=== PATIENT | male | born 2005 | race Caucasian/White ===

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

== ENCOUNTER 2023-09-12 11:14 | Emergency (ER) | payer OTHER, MEDICAID, SELFPAY ==
[2023-09-12] VITALS (12 sets, daily range): BP systolic 110–170; BP diastolic 53–81; PULSE 82–110; RESP 8–21; TEMP 36.7; O2SAT 99–100; BMI 17.4
--- NOTE | 2023-09-12 11:24 | DI.RAD.S_ITS ---
PROCEDURE: XR KNEE LT 3V INDICATIONS: CUSTODIAL, KNEE PAIN/INJURY TECHNIQUE: 3 views of the knee were acquired. COMPARISON: None. FINDINGS: Bones: There is a comminuted fracture within the medial tibial plateau, with minimal displacement. Fracture lucency does extend into the joint space. There is minimal height loss compared to the lateral aspect. Fracture lucency does extend into the tibial spine. Soft tissues: Mild joint effusion. No suspicious soft tissue calcifications. IMPRESSION: Comminuted medial plateau fracture with minimal displacement, extending into the tibial spine. Dictated by: Madalyn Taveras M.D. on 09/12/2023 at 13:15 Approved by: Madalyn Taveras M.D. on 09/12/2023 at 13:16
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
[2023-09-12] MEDS: MORPHINE 4 MG/ML INJ IV (11:52)
[2023-09-12] MEDS: KETOROLAC 30 MG/ML VIAL 15 MG IV (11:52)
--- NOTE | 2023-09-12 12:09 | DI.CT.S_ITS ---
PROCEDURE: CT LE LT W CON INDICATIONS: FRACTURE ASSESSMENT PREOP TECHNIQUE: Noncontrast 1-1.5 mm axial sections acquired from the mid-patella to the proximal tibia, with coronal and sagittal reformats. COMPARISON: [facility], CR, XR KNEE LT 3V, 09/12/2023, 11:27. FINDINGS: Image quality: Excellent. Bones: There is a comminuted medial tibial plateau fracture with appearance approximately 3 mm height loss. Fracture lucency does extend into the tibial spine. In addition, fracture lucencies are identified within the anterior, mid and posterior aspect of the medial condyle. Remaining osseous structures appear intact. Soft tissues: Moderate effusion is present. IMPRESSION: Comminuted medial condylar fracture with mild depression as well as extension into the tibial spine. Dictated by: Madalyn Taveras M.D. on 09/12/2023 at 13:17 Approved by: Madalyn Taveras M.D. on 09/12/2023 at 13:19
[2023-09-12 12:53] LABS: Add Manual Diff / Slide Review NO; Basophils Absolute Auto 100 /uL (0-100); Basophils Percent Auto 0.5 % (0-2); Eosinophils Absolute Auto 100 /uL (0-450); Eosinophils Percent Auto 0.7 % (2-4); Hematocrit 37.9 % (41-53); Hemoglobin 13.2 g/dL (13.5-17.5); Lymphocytes Absolute Auto 1600 /uL (1100-4500); Mean Corpuscular HGB Conc 34.9 % (30-36); Mean Corpuscular Hemoglobin 29.5 PG (26-34); Mean Corpuscular Volume 84.6 fL (80-100); Monocytes Absolute Auto 600 /uL (0-900); Monocytes Percent Auto 6.6 % (3-14); Neutrophils Absolute Auto 7500 /uL (1500-7000); Neutrophils Percent Auto 76.2 % (50-75); Platelet Count 210 X10^3/uL (150-400); Red Blood Cell Count 4.48 X10^6/uL (4.5-5.9); Red Cell Distribution Width 13.2 % (11.6-14.8); White Blood Cell Count 9.8 X10^3/uL (4.5-11.0)
[2023-09-12 13:03] LABS: INR 1.3 (0.9-1.3); Prothrombin Time 14.6 SECONDS (10.1-12.7)
[2023-09-12 13:13] LABS: Alanine Aminotransferase 16 IU/L (<50); Albumin Globulin Ratio 1.4 (1.0-2.8); Alkaline Phosphatase 62 U/L (38-126); Aspartate Aminotransferase 25 IU/L (17-59); BUN Creatinine Ratio 24.2 (6-22); Bilirubin Total 0.6 mg/dL (0.2-1.3); Blood Urea Nitrogen 16 mg/dL (9-20); Calcium 8.7 mg/dL (8.4-10.2); Carbon Dioxide 23 mmol/L (22-32); Chloride 107 mmol/L (98-107); Estimated Glomerular Filt Rate > 60 mL/min (>60); Globulin 2.8 g/dL (1.7-4.1); Glucose 92 mg/dL (70-100); HEMOLYSIS < 15 (0-50); Sodium 135 mmol/L (137-145); Total Protein 6.8 g/dL (6.3-8.2)
--- NOTE | 2023-09-12 14:13 | PC.NURSE ---
Upon getting pt to wheel chair for D/C pt passed out for approximately 3 mintues. Pt was assited back to bed with the help of another RN. Dr. Huizar aware. EKG ordered. Blood glucose 83. Pt states he passed out earlier this week as well. Pt has not seen his primary doctor for history of passing out.
== END 2023-09-12 14:50 | disposition home or self-care (01) ==
PROVIDERS: Emergency Provider Emergency Medicine; PCP Pediatrics
DX: S82.142A Displaced bicondylar fracture of left tibia, initial encounter for closed fracture (principal); V29.99XA Rider (driver) (passenger) of other motorcycle injured in unspecified traffic accident, initial encounter
CPT/HCPCS: 36415; 73562; 73700; 80053; 85025; 85610; 86850; 86900; 86901; 93005; 93010; 96374; 96375; 99284; 99285; J1885; J2270

== ENCOUNTER 2023-09-20 11:17 | Inpatient (IN) | payer OTHER, MEDICAID, SELFPAY ==
[2023-09-17 12:32] VITALS: BMI 17.4
[2023-09-20] VITALS (13 sets, daily range): BP systolic 107–137; BP diastolic 70–94; PULSE 86–105; RESP 11–18; TEMP 36.2–37.1; O2SAT 94–100; BMI 17.4
--- NOTE | 2023-09-20 | DI.RAD.S_ITS ---
PROCEDURE: XR KNEE LT 1TO2V INDICATIONS: LEFT TIBIA TECHNIQUE: Multiple intraoperative fluoroscopic images of the left knee. COMPARISON: [facility], CR, XR KNEE LT 3V, 09/12/2023, 11:27. FINDINGS: Intraoperative fluoroscopic images were acquired for open reduction and internal fixation of proximal tibial fracture. Lateral plate and screw fixation noted. No gross hardware complication seen. Postsurgical alignment appears anatomic. IMPRESSION: Intraoperative fluoroscopic support for open reduction and internal fixation of proximal left tibial fracture. Please see separate procedure note for further details. Dictated by: Kyler Mckeon M.D. on 09/20/2023 at 19:26 Approved by: Kyler Mckeon M.D. on 09/20/2023 at 19:27
[2023-09-20] MEDS: LACTATED RINGERS 1,000 ML 42 ML IV ×2 (12:02→18:25)
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
--- NOTE | 2023-09-20 14:11 | SUR.HOLD ---
Delay explained to patient and mother.
[2023-09-20] MEDS: LORazepam 2 MG/ML INJ 0.5 MG IV (14:43)
--- NOTE | 2023-09-20 14:45 | SUR.PREOP ---
Patient still waiting to proceed into OR. Delay due to previous case delay. Explained to mother and patient. Ativan given for anxiety and restlessness.
--- NOTE | 2023-09-20 15:46 | SUR.OPER ---
Supine on padded OR bed, head on pillow, arms secured on padded arm boards at <90 degrees abduction, legs uncrossed, safety belt at thigh, tape over blanket over lower legs.
[2023-09-20] MEDS: CEFAZOLIN 2 GM/100 ML PREMIX 100 ML IV ×2 (16:00→22:03)
[2023-09-20] MEDS: BUPIVACAINE 0.25% (PF) 30 ML, EPINEPHrine 0.15 MG INJ (16:48)
[2023-09-20] MEDS: MEPERIDINE 50 MG/ML INJ 25 MG IV (18:14)
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
[2023-09-20] MEDS: OXYCODONE IR 5 MG TABLET PO ×3 (18:33→23:57)
[2023-09-20] MEDS: ONDANSETRON 4 MG/2 ML INJ IV (18:33)
[2023-09-20] MEDS: HYDROMORPHONE 1 MG INJ IV (18:47)
[2023-09-20] MEDS: IBUPROFEN 600 MG TABLET PO (19:48)
[2023-09-20] MEDS: LACTATED RINGERS 1,000 ML 100 ML IV (19:48)
[2023-09-20] MEDS: ACETAMINOPHEN 325 MG TABLET 650 MG PO (19:49)
[2023-09-20] MEDS: HYDROMORPHONE 0.5 MG INJ IV (20:54)
[2023-09-20] MEDS: KETOROLAC 30 MG/ML VIAL 15 MG IV (21:14)
--- NOTE | 2023-09-20 22:32 | PC.NURSE ---
Addendum entered by Porsha Nina R.N. 09/21/23 05:36: 0400: Patient OOB to BSC, voided 600cc, PVR showed <10cc. Addendum entered by Porsha Nina R.N. 09/21/23 01:38: 0100: Patient expresses that he is having difficulty urinating and feels pressure in his bladder, got OOB to BSC and voided but still felt like bladder was not emptying. Bladder scan showed 786cc, MD Peterson notified, in & out cath ordered. Patient refused straight cath, went back onto BS and voided 575cc, PVR showed 287cc. Will continue to monitor. 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 Patient is AxOx4, VSS, O2 sat 99% on RA. Left knee immobilizer in place, left leg is elevated and ice packs placed. Incision drsg covered w/ RICARDO wrap, no drainage noted. CMS intact. 2100: Patient is screaming out stating that he has 10/10 pain. Left leg immobilizer loosened per patient request, CMS intact, no drainage noted. Pain medications given (see MAR), not effective. MD Chaudhary notified, 15mg IV Toradol x1 ordered. Pain medications given as ordered w/ good effect, patient verbalized that he is feeling better and appears physically relaxed.
[2023-09-20] MEDS: methocarbamoL 500 MG TABLET 750 MG PO (23:16)
[2023-09-21] MEDS: ACETAMINOPHEN 325 MG TABLET 650 MG PO ×2 (00:05→06:02)
[2023-09-21] MEDS: HYDROMORPHONE 0.5 MG INJ IV ×4 (00:19→08:10)
[2023-09-21] MEDS: OXYCODONE IR 5 MG TABLET PO ×3 (02:49→10:32)
[2023-09-21 04:37] VITALS: BP 110/60; PULSE 89; RESP 16; TEMP 36.4; O2SAT 98
[2023-09-21] MEDS: LACTATED RINGERS 1,000 ML 100 ML IV (05:57)
[2023-09-21] MEDS: IBUPROFEN 600 MG TABLET PO (06:02)
[2023-09-21] MEDS: CEFAZOLIN 2 GM/100 ML PREMIX 100 ML IV (06:10)
--- NOTE | 2023-09-21 07:03 | PM.PNPO.1 ---
Subjective Subjective Interval history: Postop day number 1 Left medial tibial plateau ORIF. Moderate pain this morning. Better than it was last night. Lying in bed. Exam Vital Signs (past 8 hours): - 09/21/23 04:37 Temperature 97.6 F Pulse Rate 89 Respiratory Rate 16 Blood Pressure 110/60 Pulse Oximetry 98 Oxygen Flow Rate 0 Oxygen Delivery Method Room Air Oxygen Flow Rate 0 Narrative Exam Narrative: Alert and oriented no acute distress Lower leg compartments soft. Sagar wrap and hinged brace in place. Demonstrates toe flexion extension ankle flexion and extension. Palpable dorsalis pedis pulse. Sensation grossly intact PFSH Medical History Decreased visual acuity Epistaxis Social History household members: family Smoking Status: Never smoker alcohol intake: never Assessment & Plan Post-op Postoperative Procedures: Procedures Operation Date: 09/20/23 13:45 Actual Procedure Side Surgeon p ORIF of fracture of Tibial Plateau with C-arm fluoroscopic guidance Left Jackeline Lundy MD Postoperative day: 1 Postoperative status: doing well Postoperative status narrative: Postop day 1 left tibial plateau open reduction internal fixation, medial tibial plateau fracture Postoperative plan: routine post-op care Postoperative plan narrative: Nonweightbearing left lower extremity x8 weeks. We will do a dose of Toradol this morning for pain We will work with physical therapy. Once pain controlled and clears physical therapy anticipate discharge home later today. Compartments are soft. We will start Lovenox today. Has prescription for 3 weeks of Lovenox for DVT prophylaxis Medications have been sent to pharmacy. Scheduled for follow up in Orthopedic Clinic --already scheduled. Time Spent With Patient Time with patient: less than 15 minutes Quality VTE Deep Vein Thrombosis/Pulmonary Embolism Present on Admission: No
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
[2023-09-21 07:30] VITALS: BP 111/63; PULSE 77; RESP 18; TEMP 37.1; O2SAT 97
[2023-09-21] MEDS: ENOXAPARIN 40 MG/0.4 ML SYRINGE SUBCUT (08:10)
[2023-09-21] MEDS: DOCUSATE 100 MG CAPSULE PO (08:10)
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
--- NOTE | 2023-09-21 10:32 | PT-IP ANOTE ---
Pt's mom arrives and PT speaks with pt and Mom in his room. Mom and pt request not having another PT treatment d/t pt lethargy and pain and because they feel comfortable managing him at home as he has been using crutches over the past week and he intends to boost up the steps. PT ed Mom to ask surgeon about ROM order and OPPT. D/c PT.
[2023-09-21] MEDS: KETOROLAC 30 MG/ML VIAL IV (11:40)
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
--- NOTE | 2023-09-21 12:14 | PC.NURSE ---
Patient is A&Ox4, VSS, afebrile on RA. Sagar wrap to L knee c/d/i. PA at bedside clearing patient medically for discharge home. PT at bedside this a.m. works with patient and he is cleared for discharge home with crutches with his mother. Delmy from pharmacy reviews medications with patient and mother as well as RN. He is anxious about another form of DVT prevention orally vs. injections. LM for MD Smart. Patient and mother acknowledge understanding of site care, activity limitations, s/sx of infection/complication as well as follow up post op appointment in 2 weeks. Patient is escorted via w/ch to private vehicle with crutches and knee brace intact with his mother for discharge home this afternoon at noon.
== END 2023-09-21 12:00 | disposition home or self-care (01) | DRG 313 ==
PROVIDERS: Admitting Provider Orthopaedic Surgery Foot and Ankle Surgery; PCP Pediatrics; Referring Provider Orthopaedic Surgery Foot and Ankle Surgery; Visit Provider Orthopaedic Surgery Foot and Ankle Surgery
PROC: 0QSH04Z Reposition Left Tibia with Internal Fixation Device, Open Approach (ICD-10-PCS; principal; 2023-09-20 13:45)
DX: S82.142A Displaced bicondylar fracture of left tibia, initial encounter for closed fracture (principal); V23.49XA Other motorcycle driver injured in collision with car, pick-up truck or van in traffic accident, initial encounter
CPT/HCPCS: 73560; 76000; 97161; J0171; J0690; J1100; J1170; J1650; J1885; J2060; J2175; J2250; J2405; J2704; J3010

== ENCOUNTER 2024-02-26 13:00 | Outpatient (RCR) | payer BC, SELFPAY ==
[2023-09-20 20:12] VITALS: BMI 17.4
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
--- NOTE | 2024-01-16 15:59 | PT.OPPOC ---
Physical, Occupational & Speech Therapy At [facility] Current Diagnoses Displaced bicondylar fracture of left tibia, subsequent encounter for closed fracture with routine healing (01/16/24) Visit Care Team Role Provider Type Lavinia Corrigan MD Family Provider Physician Primary Care Provider Specialty: Pediatrics Address: [address] [place] [address], [place], [address] Email: [email or web address] Jackeline Lundy MD Attending Provider Physician Referring Provider Specialty: Orthopedics Orthopedic Surgery Address: [address] [place] [address], [place], [address] Email: [email or web address] Plan Of Care PT-OP-T Assessment and Plan Start: 12/12/23 07:28 Freq: Status: Active Protocol: Document 01/16/24 14:41 NM (Rec: 01/16/24 15:56 NM [id number]) Physical Therapy Assessment Goals Five Impairment strength Impairment B squat with compensations into knee valgus and R shift Nursing Home Goal (LTG) Pt will be able to perform 10 reps of bilateral squats with equal weight bearing and no compensations in order to demonstrate improved BLE strength 01/16/24: MET- 10 equal, bilteral squats LTG Duration 6 weeks MET Four Impairment strength Impairment L ankle plantarflex strength unable to perform single leg heel raise Level Vial Sealer Goal (LTG) Pt will be able to peform at least 8 single leg heel raises without compensation in order to demonstrate improved propulsion during gait 01/16/24: 3 single leg, diff with eccentric lowering (01/09/24) Eccentric heel raise w/ UE support: B>L attempted and modified to B> L w/ R toetouch d/t difficulty w/ transfer to LLE. L 105 Lbs >110 lbs with eccentric lowering. LTG Duration 6 weeks NOT MET Three Impairment strength Impairment L knee flex 4/5, ext 4-/5 MMT Nursing Home Goal (LTG) Pt will improve L knee flex and ext to 5/5 MMT in order to demonstrate increased strength required for gait and balance 01/16/24: MET, 5/5 LTG Duration 6 weeks MET Two Impairment gait Impairment antalgic gait with forearm crutch Short Term Goal (STG) Pt will demo normal gait mechanics without AD x100 ft for return to PLOF STG Duration 3 weeks MET Level Vial Sealer Goal (LTG) Pt will demo normal gait mechanics without AD at community distances for return to PLOF 01/16/24: PARTIALLY MET for normal gait. Tendency for decreased toe off, prn decreased L stance. Decreased weight acceptance on L stance with jogging. Neither painful LTG Duration 6 weeks PARTIALLY MET, PROGRESSING One Impairment function Impairment LEFS 54/80 Level Vial Sealer Goal (LTG) Pt will increase LEFS score > 65/80 in order to demonstrate improved activity tolerance and QOL 01/16/24: 70/80 LTG Duration 6 weeks MET Progress Towards Goals Progress Towards Goals Progressing Toward Goals,Slow Progress due to Activity Tolerance,Goals Met Progress Comments Met 3 LTG, progressing toward remaining LTGs Assessment Summary Assessment Pt tolerated session well. Reports improvements in ability to perform ADLs. Initiated soleus raises with tennis ball to encourage greater posterior tibialis activation, prevent compensation. Progressed leg press resistance with bilateral and unilateral squat ; pt demos improved quad/glute control. During eccentric heel raises, pt with improved weight transfer but still challenged by movement. Trialed single leg heel raises , able to perform 3 but with difficulty. No pain with any activity. Initiated gentle, small range plyometrics on both leg press and standing hops to address pt desire to return to jogging. PT cued pt for equal, bilateral, soft landing with all motions. No pain with any hopping. Pt has been seen x7 visits since IE in November 2023. He is progressing toward goals and met 3 LTG. He is still progressing toward goals related to normal gait mechanics and heel strength. Pt continues to demo non- antalgic gait deviations with decreased toe off and strong stance on LLE. Sessions are emphasizing LLE strength to address compensations, but pt would benefit from additional strengthening and biomechanics training. Pt reports minimal limitations in ADLs/IADLs, and recreational activities. Although, he does report that he has discomfort in his L leg with standing/gait when at work. Pt also demos difficulty with L plantarflexion strength required for normal gait, higher level activity as evident by challenge with transitioning to LLE during eccentric heel raises and inability to perform >3 single heel raises. Due to insurance limitations and pt work schedule, will be dropping down to 1x/wk. Pt would benefit from additional skilled PT for progressive LLE strengthening, impact training, and normal gait/ return to sport training in order to improve activity tolerance, QOL, and return to prior level of function. Physical Therapy Plan Frequency and Duration Frequency of Treatment 1x/Week Duration of treatment (weeks) 6 Plan of Care Start Date 01/16/24 Plan of Care End Date 02/29/24 Therapeutic Interventions Therapeutic Interventions Aquatic Therapy,Balance Training,Coordination Training ,Gait Training,Home Exercise Program,Joint Mobilizations, Manual Therapy,Neuromuscular Re-education,Patient/Caregiver Education,Self-Care/Home Management,Sensory Integration ,Soft Tissue Mobilization, Taping,Therapeutic Activities, Therapeutic Exercises Modalities Cold Pack/Ice Massage,Electric Stimulation,Hot Packs, Ultrasound,Vasopneumatic Devices Next Visit Focus/Plan Next Note Type Treatment Note Next Visit Plan Balance (higher level) Review: eccentric heel raise, trial single leg heel raise, single leg squat. Gait mechanics: toe off, propulsion , weight acceptance. Issue good HEP Plan of Care Dates Plan of Care Start Date 01/16/24 Plan of Care End Date 02/29/24 Electronically Signed by: Saira Burden, PT 01/16/24 1591 If you are in agreement with this Plan of Care, please return a signed and dated copy. I have reviewed this Plan of Care and certify that the skilled therapy services above are required to meet the patient?s needs. Physician Signature Date Printed Name and Credentials Clinical Instructor Signature Printed Name and Credentials
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
== END 2024-02-28 12:59 | disposition home or self-care (01) ==
LOC: PHYS 13:00
PROVIDERS: Family Provider Pediatrics; PCP Pediatrics; Referring Provider Orthopaedic Surgery Foot and Ankle Surgery; Visit Provider Orthopaedic Surgery Foot and Ankle Surgery
DX: S82.142D Displaced bicondylar fracture of left tibia, subsequent encounter for closed fracture with routine healing (principal)
CPT/HCPCS: 97110; 97112; 97116; 97140; 97161; 97530; 97535

== ENCOUNTER 2024-07-25 18:07 | Emergency (ER) | payer BC, SELFPAY ==
[2023-09-20 20:12] VITALS: BMI 17.4
[2024-07-25 18:14] VITALS: BP 145/64; PULSE 87; RESP 16; TEMP 37; O2SAT 99; BMI 17.2
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
[2024-07-25] MEDS: ACETAMINOPHEN 325 MG TABLET 975 MG PO (21:03)
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
== END 2024-07-25 22:05 | disposition home or self-care (01) ==
PROVIDERS: Emergency Provider Emergency Medicine; Family Provider Pediatrics; PCP Pediatrics
DX: S52.502A Unspecified fracture of the lower end of left radius, initial encounter for closed fracture (principal); M25.512 Pain in left shoulder; R07.89 Other chest pain; V29.99XA Rider (driver) (passenger) of other motorcycle injured in unspecified traffic accident, initial encounter; Z79.01 Long term (current) use of anticoagulants
CPT/HCPCS: 71046; 73030; 73110; 99283

== ENCOUNTER → 2024-08-09 09:54 | Outpatient (CLI) | payer BC, SELFPAY ==
[2023-09-20 20:12] VITALS: BMI 17.4
--- NOTE | 2024-08-09 09:55 | DI.CT.S_ITS ---
PROCEDURE: CT WRIST LEFT WITHOUT CON INDICATIONS: FRACTURE LEFT WRIST TECHNIQUE: Noncontrast 1 mm axial sections acquired through the carpal bones, with coronal and sagittal reformats. COMPARISON: [facility], CR, XR WRIST 3+ VIEWS LEFT, 08/04/2024, 15:52. FINDINGS: Image quality: Excellent. Bones: As seen on previous wrist radiograph, there is an acute impacted fracture involving distal radius with up to 5 mm overlapping at fracture site. Subtle linear fracture line possibly extending to radiocarpal joint space as well as to the base of radial styloid. There is also a displaced fractured fragment involving tip of ulnar styloid. No other fracture or dislocation. No suspicious bony lesions. No CT evidence of avascular necrosis. Soft tissues: There is mild soft tissue swelling over radial and dorsal aspect of left wrist. No soft tissue mass or drainable fluid collection. No abnormal soft tissue calcifications. No gross full-thickness extensor or flexor tendon rupture. IMPRESSION: 1. Comminuted and impacted fracture involving distal radius with likely radiocarpal joint extension as above. Minimally displaced ulnar styloid tip fracture. No other fracture or dislocation. No suspicious bony lesions. 2. No significant joint effusion or calcified intra-articular loose bodies. No gross full-thickness wrist tendon rupture. No abnormal soft tissue calcifications. Dictated by: Imer Javed M.D. on 08/09/2024 at 13:21 Approved by: Imer Javed M.D. on 08/09/2024 at 14:30
== END ==
PROVIDERS: Family Provider Pediatrics; PCP Pediatrics; Referring Provider Orthopaedic Surgery; Visit Provider Orthopaedic Surgery
DX: S52.502A Unspecified fracture of the lower end of left radius, initial encounter for closed fracture (principal); S52.615A Nondisplaced fracture of left ulna styloid process, initial encounter for closed fracture; X58.XXXA Exposure to other specified factors, initial encounter
CPT/HCPCS: 73200

== ENCOUNTER → 2025-01-26 14:58 | Outpatient (CLI) | payer OTHER, SELFPAY ==
[2023-09-20 20:12] VITALS: BMI 17.4
[2025-01-26 16:44] LABS: Influenza A - CEPHEID Flu A NEGATIVE (NEGATIVE); Influenza B - CEPHEID Flu B NEGATIVE (NEGATIVE); Respiratory Syncytial Virus Negative (Negative)
[2025-01-26 16:50] LABS: COVID-19 CEPHEID 4-PLEX PCR Negative (Negative)
== END ==
PROVIDERS: Family Provider Pediatrics; Visit Provider Nurse Practitioner Family
DX: R05.1 Acute cough (principal)
CPT/HCPCS: 0241U

== ENCOUNTER → 2025-01-26 15:12 | Outpatient (CLI) | payer OTHER, SELFPAY ==
[2023-09-20 20:12] VITALS: BMI 17.4
--- NOTE | 2025-01-26 15:14 | DI.RAD.S_ITS ---
PROCEDURE: XR CHEST 2V INDICATIONS: Cough TECHNIQUE: 2 views of the chest were acquired. COMPARISON: [facility], CR, XR CHEST 2V, 07/25/2024, 18:26. FINDINGS: Heart, mediastinum and pulmonary vascular: Heart is normal in size and configuration. Mediastinum is unremarkable. Pulmonary vascular is normal. Lungs: Moderate dense infiltrate or infiltrate like mass has developed in the posterior right upper lobe and/or superior segment right lower lobe Pleural spaces: Normal-no effusions or pneumothorax. Bones and soft tissues: Normal IMPRESSION: Moderate infiltrate, or, much less likely, infiltrate like mass in the posterior right upper lobe and/or superior segment right lower lobe. If there is suspicion for pneumonia, suggest antibiotic treatment and repeat film in 3-4 weeks. If there is a persistent density in this region on follow-up film , then chest CT would be recommended at that time. Dictated by: Seth Soto M.D. on 01/27/2025 at 9:47 Approved by: Seth Soto M.D. on 01/27/2025 at 9:49
== END ==
LOC: RAD 15:14
PROVIDERS: Family Provider Pediatrics; Referring Provider Nurse Practitioner Family; Visit Provider Nurse Practitioner Family
DX: R05.1 Acute cough (principal); R91.8 Other nonspecific abnormal finding of lung field
CPT/HCPCS: 0241U; 71046

== ENCOUNTER → 2025-09-17 15:03 | Outpatient (CLI) | payer OTHER, SELFPAY ==
[2023-09-20 20:12] VITALS: BMI 17.4
--- NOTE | 2025-09-17 15:04 | DI.RAD.S_ITS ---
PROCEDURE: XR CHEST 2V INDICATIONS: cough TECHNIQUE: 2 views of the chest were acquired. COMPARISON: [facility], CR, XR CHEST 2V, 01/26/2025, 15:14. [facility], CR, XR CHEST 2V, 07/25/2024, 18:26. FINDINGS: Surgical changes and devices: None. Lungs and pleura: Lungs are clear. No pleural effusions or pneumothorax. Mediastinum: Mediastinal contours are normal. Heart size is normal. Bones and chest wall: No suspicious bony abnormalities. Soft tissues appear unremarkable. IMPRESSION: No acute cardiopulmonary abnormality is seen. Dictated by: Alexis Garcia M.D. on 09/17/2025 at 15:27 Approved by: Alexis Garcia M.D. on 09/17/2025 at 15:27
== END ==
PROVIDERS: Family Provider Pediatrics; PCP Family Medicine; Referring Provider Family Medicine; Visit Provider Family Medicine
DX: J02.9 Acute pharyngitis, unspecified (principal); J01.00 Acute maxillary sinusitis, unspecified; R05.1 Acute cough; R04.0 Epistaxis
CPT/HCPCS: 71046; 87070; 87637

== ENCOUNTER → 2025-09-17 15:24 | Outpatient (CLI) | payer OTHER, SELFPAY ==
[2023-09-20 20:12] VITALS: BMI 17.4
[2025-09-17 18:33] LABS: Influenza A - CEPHEID Flu A POSITIVE (NEGATIVE); Influenza B - CEPHEID Flu B NEGATIVE (NEGATIVE)
[2025-09-17 18:37] LABS: COVID-19 CEPHEID 4-PLEX PCR Negative (Negative)
== END ==
PROVIDERS: Family Provider Pediatrics; PCP Family Medicine; Visit Provider Family Medicine
DX: R05.1 Acute cough (principal); J01.00 Acute maxillary sinusitis, unspecified; J02.9 Acute pharyngitis, unspecified; R04.0 Epistaxis
CPT/HCPCS: 87070; 87637